=== PATIENT | male | born 1970 | race Caucasian/White ===

== ENCOUNTER 2021-03-05 04:37 | Emergency (ER) | payer MEDICAID ==
[~2021-03-05] VITALS: Ht 177.8 cm; Wt 93.2 kg
[2021-03-05 04:43] VITALS: Ht 177.8 cm; Wt 93.2 kg
[2021-03-05] MEDS ORDERED: STERAPRED DS 1010 MG PO (05:03)
[2021-03-05] MEDS ORDERED: MUPIROCIN22 GM TOPICAL (05:03)
== END 2021-03-05 05:40 | disposition home or self-care (01) ==
LOC: D.ER 04:37
DX: S80.812A Abrasion, left lower leg, initial encounter (principal); S80.811A Abrasion, right lower leg, initial encounter; X58.XXXA Exposure to other specified factors, initial encounter